=== PATIENT | male | born 1930 | race Asian ===

== ENCOUNTER 2018-08-12 18:18 | Inpatient (IN) | payer OTHER ==
[~2018-08-12] VITALS: Ht 175.3 cm; Wt 63.0 kg
[2018-08-12 18:27] VITALS: Ht 175.3 cm; Wt 63.0 kg
[2018-08-12 19:06] LABS: BASOPHIL % 0.4 % (0-2); PLATELET COUNT 146 x10^3mcL (130-400); RED CELL DISTRIBUTION WIDTH 15.9 % (11.5-14.5)
[2018-08-12 19:16] LABS: FREE T4 1.55 ng/dL (0.76-1.46); T4(THYROXINE) 7.4 ug/dL (4.7-13.3)
[2018-08-12 19:39] LABS: ALKALINE PHOSPHATASE 78 U/L (46-116); ALT/SGPT 96 U/L (16-63); AST/SGOT 105 U/L (15-37); BILIRUBIN TOTAL 1.09 mg/dL (0.20-1.00); CALCIUM 8.4 mg/dL (8.5-10.1); CARBON DIOXIDE 25.1 mmol/L (21-32); CHLORIDE SERUM 107 mmol/L (98-107); CK-MB 0.9 ng/mL (0-3.6); GLUCOSE SERUM 190 mg/dL (74-106); SODIUM SERUM 147 mmol/L (136-145)
[2018-08-12 19:41] LABS: T3 TOTAL 0.88 ng/mL
[2018-08-12 19:44] LABS: ALBUMIN 3.2 g/dL (3.4-5.0); POTASSIUM SERUM 2.6 mmol/L (3.5-5.1); TOTAL PROTEIN, SERUM 5.9 g/dL (6.4-8.2)
[2018-08-12 19:54] LABS: C REACTIVE PROTEIN 0.2 mg/dL (<=0.9)
[2018-08-12 20:03] LABS: UA SPECIFIC GRAVITY 1.025 (1.005-1.035); microscopic required? YES; urine erythrocyte 2+ (NEGATIVE)
[2018-08-12 20:36] LABS: ERYTHROCYTE SED RATE 7 mm/hr (0-20)
[2018-08-12 20:38] VITALS: BP 151/81
[2018-08-12 22:11] LABS: MAGNESIUM 1.7 mg/dL (1.8-2.4); PHOSPHOROUS 3.4 mg/dL (2.5-4.9)
[2018-08-12 23:12] VITALS: BP 110/67
[2018-08-12 23:30] VITALS: BP 119/66
[2018-08-13] VITALS (14 sets, daily range): BP systolic 91–132; BP diastolic 46–79
[2018-08-13 04:37] LABS: CALCIUM 8.3 mg/dL (8.5-10.1); CARBON DIOXIDE 27.4 mmol/L (21-32); CHLORIDE SERUM 110 mmol/L (98-107); CREATININE SERUM 1.6 mg/dL (0.7-1.3); GLUCOSE SERUM 129 mg/dL (74-106); POTASSIUM SERUM 3.6 mmol/L (3.5-5.1); SODIUM SERUM 146 mmol/L (136-145)
[2018-08-13 04:41] LABS: BASOPHIL % 0.3 % (0-2); PLATELET COUNT 110 x10^3mcL (130-400); RED CELL DISTRIBUTION WIDTH 16.1 % (11.5-14.5)
[2018-08-13] MEDS ORDERED: [UNRECOGNIZED DRUG - OTHER] IV (18:20)
[2018-08-13] MEDS ORDERED: HEP5I SC (18:55)
== END 2018-08-13 20:05 | disposition short-term general hospital (02) | DRG 208 ==
LOC: ED 18:18 → IC 21:50
PROVIDERS: Specialist; ADMIT General Practice
PROC: 5A1935Z Respiratory Ventilation, Less than 24 Consecutive Hours (ICD-10-PCS; principal; 2018-08-12)
PROC: 0BH17EZ Insertion of Endotracheal Airway into Trachea, Via Natural or Artificial Opening (ICD-10-PCS; 2018-08-12)
DX: J96.00 Acute respiratory failure, unspecified whether with hypoxia or hypercapnia (principal); N17.0 Acute kidney failure with tubular necrosis; J69.0 Pneumonitis due to inhalation of food and vomit; I21.A1 Myocardial infarction type 2; K72.00 Acute and subacute hepatic failure without coma; E44.1 Mild protein-calorie malnutrition; N39.0 Urinary tract infection, site not specified; E87.3 Alkalosis; E87.6 Hypokalemia; E83.42 Hypomagnesemia; E11.65 Type 2 diabetes mellitus with hyperglycemia; I48.91 Unspecified atrial fibrillation; R80.9 Proteinuria, unspecified; F03.90 Unspecified dementia, unspecified severity, without behavioral disturbance, psychotic disturbance, mood disturbance, and anxiety; Z68.22 Body mass index [BMI] 22.0-22.9, adult; Z79.84 Long term (current) use of oral hypoglycemic drugs
CPT/HCPCS: 36600; 82962; 84439; 85378; 87804; C9113; J0461; J1644; J2543; J2704; J3475; J3480; J3490; J7030; Q0092